=== PATIENT | male | born 1950 | race Caucasian/White ===

== ENCOUNTER 2017-08-31 11:57 | Emergency (ER) | payer MEDICARE ==
[2017-08-31 12:03] VITALS: TEMP 98.6
--- NOTE | 2017-08-31 13:24 | RAD ---
PROCEDURE: Right Wrist Radiographs. HISTORY: fall 1 1/2 months ago; pain to radial aspect COMPARISON: None. FINDINGS: BONES: Normal. No fracture. 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 No dislocation. SOFT TISSUES: Arterial atherosclerotic vascular calcifications noted. OTHER FINDINGS: None. IMPRESSION: No fracture appreciated Minimal arthrosis Atherosclerotic vascular calcifications / disease .
--- NOTE | 2017-08-31 13:28 | RAD ---
PROCEDURE: Right Hand Radiographs. HISTORY: fall 1 1/2 months ago; pain to hand/wrist COMPARISON: None. FINDINGS: BONES: Normal. No fracture. JOINTS: Normal. No osteoarthritic changes. SOFT TISSUES: Normal. OTHER FINDINGS: None. IMPRESSION: Normal right hand radiographs.
[2017-08-31 13:43] VITALS: BP 128/71; PULSE 77; RESP 18
--- NOTE | 2017-08-31 14:08 | ED PDOC ---
Arrival/HPI - General Chief Complaint: Upper Extremity Problem/Injury Time Seen by Provider: 08/31/17 12:04 Historian: Patient - History of Present Illness Narrative History of Present Illness (Text): 08/31/17 14:07 66-year-old male presents today with a right hand and wrist pain status post injury a month and a half ago. Patient states he fell and injured the wrist 1 1/ 2 months ago and has been having pain ever since. Patient denies numbness weakness or tingling in the extremity. No medications have been taken for pain at home. Patient states he has been using a wrist splint without improvement. Patient states he has not followed up with his primary care physician. He denies any other complaints. Past Medical History - Provider Review Nursing Documentation Reviewed: Yes - Travel History Have you recently traveled outside [place] w/in the past 3 mons?: No - Infectious Disease Hx of Infectious Diseases: None - Tetanus Immunization Tetanus Immunization: Unknown - Cardiac Hx Cardiac Disorders: Yes Hx Hypertension: Yes - Pulmonary Hx Respiratory Disorders: Yes Hx Chronic Obstructive Pulmonary Disease (COPD): Yes - Neurological Hx Neurological Disorder: Yes Hx Transient Ischemic Attacks (TIA): Yes - HEENT Hx HEENT Disorder: No Hx Sinusitis: No - Renal Hx Renal Disorder: No - Endocrine/Metabolic Hx Endocrine Disorders: Yes Hx Diabetes Mellitus Type 1: Yes - Hematological/Oncological Hx Blood Disorders: No - Integumentary Hx Dermatological Disorder: No - Musculoskeletal/Rheumatological Hx Musculoskeletal Disorders: No Hx Falls: No - Gastrointestinal Hx Gastrointestinal Disorders: No - Genitourinary/Gynecological Hx Genitourinary Disorders: No - Psychiatric Hx Psychophysiologic Disorder: No Hx Substance Use: No - Surgical History Hx Cholecystectomy: Yes - Anesthesia Hx Anesthesia: Yes Hx Anesthesia Reactions: No Family/Social History - Physician Review Nursing Documentation Reviewed: Yes Family/Social History: Unknown Family HX Smoking Status: Former Smoker Hx Alcohol Use: No Hx Substance Use: No Allergies/Home Meds Allergies/Adverse Reactions: Allergies No Known Allergies Allergy (Verified 08/31/17 12:03) Review of Systems - Review of Systems Constitutional: absent: Fatigue, Fevers Respiratory: absent: SOB, Cough Cardiovascular: absent: Chest Pain, Palpitations Gastrointestinal: absent: Abdominal Pain, Nausea, Vomiting Genitourinary Male: absent: Dysuria Musculoskeletal: Arthralgias. absent: Back Pain, Neck Pain Skin: absent: Rash Neurological: absent: Headache, Dizziness Psychiatric: absent: Anxiety, Depression Physical Exam Vital Signs Reviewed: Yes Vital Signs Temp Pulse Resp BP Pulse Ox 08/31/17 13:43 77 18 128/71 95 08/31/17 11:59 98.6 F 84 16 148/85 96 Temperature: Afebrile Blood Pressure: Normal Pulse: Regular Respiratory Rate: Normal Appearance: Positive for: Well-Appearing, Non-Toxic, Comfortable Pain Distress: None Mental Status: Positive for: Alert and Oriented X 3 - Systems Exam Head: Present: Atraumatic Mouth: Present: Moist Mucous Membranes Neck: Present: Normal Range of Motion Respiratory/Chest: Present: Clear to Auscultation, Good Air Exchange. No: Respiratory Distress, Accessory Muscle Use Cardiovascular: Present: Regular Rate and Rhythm, Normal S1, S2. No: Murmurs Abdomen: No: Tenderness Upper Extremity: Present: Normal ROM, NORMAL PULSES, Tenderness (right hand/ wrist; + ttp over snuff box, dorsal wrist and 1st and 2nd metacarpals; no edema , no erythema; no ecchymosis; full rom of hand/wrist; sensation and distal pulses intact. ), Neurovascularly Intact, Capillary Refill < 2s. No: Swelling, Erythema, Temperature Abnormalties, Deformity Lower Extremity: No: Deformity Neurological: Present: GCS=15 Skin: Present: Warm, Dry, Normal Color. No: Rashes Psychiatric: Present: Alert, Oriented x 3 Medical Decision Making ED Course and Treatment: 08/31/17 14:47 Patient nontoxic well-appearing in no distress with stable vital signs pt refused injection for pain. X-rays of the right hand; no fracture as read by radiologist xray of the right wrist; no fracture as read by radiologist. motrin po Patient placed in velcro thumb spica splint. I discussed all results with patient and family advised to followup with the orthopedist for the next 2 days. Return if symptoms worsen persist or new symptoms develop Patient verbalizes understanding of discharge instructions and need for immediate followup. all aspects of this case were discussed the attending of record. Impression: hand pain, wrist pain Motrin every 6 hours as needed for pain Followup with the orthopedist within the next 2 days Followup with primary care physician within the next 2 days Return if any other concerning symptoms develop - RAD Interpretation Radiology Orders: 08/31/17 12:35 HAND RIGHT 3 VIEWS [RAD] Stat WRIST, RIGHT 3 VIEWS [RAD] Stat - Medication Orders Current Medication Orders: Discontinued Medications Ibuprofen (Motrin Tab) 600 mg PO STAT STA Stop: 08/31/17 12:36 Last Admin: 08/31/17 13:41 Dose: 600 mg MAR Pain/Vitals Document 08/31/17 13:41 [email or web address] (Rec: 08/31/17 13:41 [email or web address] [id number]) Pain Reassessment Is This A Pain ReAssessment? No Sleep Is patient sleeping during reassessment? No Presence of Pain Presence of Pain Yes Pain Scale Used Pain Scale Used Numeric Location Left, Right or Bilateral Right Pain Location Body Site Hand Description Constant Intensity 5 Scale Used Numeric Pain Behavior Facial Grimacing Aggravating Factors Changing Position Alleviating Factors Medication Disposition/Present on Arrival - Present on Arrival Any Indicators Present on Arrival: Yes History of DVT/PE: No History of Uncontrolled Diabetes: Yes Urinary Catheter: No History of Decub. Ulcer: No History Surgical Site Infection Following: None - Disposition Have Diagnosis and Disposition been Completed?: Yes Diagnosis: Wrist pain Disposition: HOME/ ROUTINE Disposition Time: 14:05 Patient Plan: Discharge Condition: GOOD Discharge Instructions (ExitCare): Wrist Injury (ED) Additional Instructions: Motrin every 6 hours as needed for pain Use a wrist splint Follow-up with primary care physician within the next 2 days Follow-up with the orthopedist within the next 2 days Return if symptoms worsen persist or if new concerning symptoms develop Prescriptions: Ibuprofen [Motrin] 600 mg PO Q6H PRN #20 tab PRN Reason: pain/fever reduction Referrals: [facility] [place] - Follow up with primary [facility] [place] [Outside] - Follow up with primary Pop Jack MD [Staff Provider] - Follow up with primary Ana Faust MD [Family Provider] - Follow up with primary Forms: [employer] ([place]), WORK NOTE
[2017-08-31 14:15] VITALS: O2SAT 99
== END 2017-08-31 14:14 | disposition home or self-care (01) ==
LOC: ED 11:57
DX: M25.531 Pain in right wrist (principal)